=== PATIENT | female | born 1940 | race Two or more races ===

== ENCOUNTER → 2023-04-14 | Outpatient (CLI) | payer MEDICAID ==
[~2023-04-14] VITALS: Ht 157.5 cm; Wt 97.1 kg
[~2023-04-14] MED LIST: ADENOSINE 82 MG in GIVE UN-DILUTED 0 ML IV ONE
== END | disposition home or self-care (01) ==
LOC: XYW 07:43
PROVIDERS: ATTEND Specialist
DX: I11.0 Hypertensive heart disease with heart failure (principal); I50.9 Heart failure, unspecified; E78.5 Hyperlipidemia, unspecified
CPT/HCPCS: 78452; 93017; A9500; J0153